=== PATIENT | male | born 1950 | race Caucasian/White ===

== ENCOUNTER 2017-04-26 08:22 | Inpatient (IN) | payer MEDICARE, OTHER ==
[2017-04-15 13:05] LABS: BASOPHILS 0.6 %; BASOPHILS ABSOLUTE 0.04 10/3/uL (0.0-0.16); EOSINOPHILS 2.2 %; EOSINOPHILS ABSOLUTE 0.15 10/3/uL (0.0-0.53); HEMATOCRIT 45.7 % (40.0-51.0); HEMOGLOBIN 15.4 g/dL (13.6-17.8); IMMATURE GRANULOCYTES 0.1 %; IMMATURE GRANULOCYTES ABSOLUTE 0.01 10/3/uL (0.0-0.11); LYMPHOCYTES 26.4 %; MANUAL DIFF NO %; MEAN CORPUS HGB CONC 33.7 g/dL (32.0-36.0); MEAN CORPUSCULAR HEMOGLOB 29.9 pg (26.0-34.0); MEAN CORPUSCULAR VOLUME 88.7 fL (80-100); MEAN PLATELET VOLUME 9.5 fL (9.2-13.0); MONOCYTES 8.9 %; MONOCYTES ABSOLUTE 0.61 10/3/uL (0.21-1.20); NEUTROPHILS 61.8 %; NEUTROPHILS ABSOLUTE 4.21 10/3/uL (2.02-8.40); PLATELET COUNT 212 10/3/uL (150-400); RED CELL COUNT 5.15 10/6/uL (4.7-6.1); WHITE BLOOD CELLS 6.8 10/3/uL (4.5-10.5)
[2017-04-15 13:12] LABS: INTERNATIONAL NORMAL RATI 1.1 UNITS (-); PROTIME (NOT ORD) 13.9 SEC (12.0-14.5)
[2017-04-15 13:40] LABS: % IRON SAT 30 % (20-50); A/G RATIO 1.2 (0.7-1.9); ALBUMIN 4.2 G/DL (3.5-5.0); ALKALINE PHOSPHATASE 77 U/L (45-117); BUN (BLOOD UREA NITROGEN) 20 MG/DL (6-23); CALCIUM, SERUM 9.5 MG/DL (8.5-10.4); CHLORIDE, SERUM 108 MMOL/L (96-112); CO2 (CARBON DIOXIDE) 30 MMOL/L (24-34); CREATININE 1.27 MG/DL (0.70-1.30); GFR AFRICAN AMERICAN 67 ML/MIN (>=60); GFR NON AFRICAN AMERICAN 58 ML/MIN (>=60); GLOBULIN 3.6 G/DL (2.5-4.1); GLUCOSE, SERUM 88 MG/DL (60-99); IRON BINDING CAPACITY 330 MCG/DL (250-450); IRON, SERUM 100 MCG/DL (35-150); POTASSIUM, SERUM 4.7 MMOL/L (3.5-5.3); SGOT(AST) 20 U/L (5-40); SGPT(ALT) 29 U/L (5-65); SODIUM, SERUM 144 MMOL/L (135-148); TOTAL BILIRUBIN 0.6 MG/DL (0-1.2); TOTAL PROTEIN 7.8 G/DL (6.0-8.5)
[2017-04-15 14:23] LABS: ASCORBIC ACID (UR NOT ORDER) 40 (NEG); BILIRUBIN, URINE NEGATIVE (NEG); KETONE, URINE NEGATIVE (NEG); LEUKOCYTE ESTERASE(NOT OR NEG (NEG); WBC (NOT ORDERED) (RFLEX) < 1 (0-5)
--- NOTE | ~2017-04-26 | HP ---
History And Physical [address] [place]. [address] NAME: TORIN WILLS : 48 STATUS : ADM IN [facility]#: [id number] AGE: 67 ADM/REG DATE : 04/26/17 MR#: [id number] REPORT SERV DATE: 04/28/17 DICTATED BY: CALIXTO BELL DATE: 04/27/17 REPORT STATUS : Draft TRANSCRIBED BY: MODL DATE: 04/27/17 DATE OF ADMISSION: 04/26/2017 REASON FOR CONSULTATION: Glucose management. HISTORY OF PRESENT ILLNESS: This is a pleasant 67-year-old white male who is status post coronary artery bypass grafting x6 that was performed on 04/26/[address] Garrett Heath. He reports that he had worsening episodes of shortness of breath with exercise and he underwent a heart catheterization on 03/08/2017 that showed diffuse coronary disease, and was subsequently referred to Dr. Heath for the above-described surgery. Hospitalist Service has been consulted postoperatively for blood glucose management as the patient does not have a history of diabetes, but did receive a large dose of Solu-Medrol intraoperatively of 500 mg. He was on an IV drip postoperatively, that has been discontinued as of this time. The patient currently only complains of some significant back pain as he has chronic back pain and takes chronic narcotics prior to this hospitalization. ALLERGIES: 1. STATED TO STATIN FOR FLU-LIKE SYMPTOMS. 2. HYDRALAZINE, APPARENT FACIAL SWELLING AND HEADACHE. 3. TEKTURNA, SEVERE HEADACHE AND FACIAL NUMBNESS. PAST MEDICAL HISTORY: Coronary artery disease; hypertension; hyperlipidemia; obstructive sleep apnea; obesity; NH in 2005 with prior cardiac stents in 2001, 2003; migraines; BPH; arthritis; and chronic back pain. SURGICAL HISTORY: As stated, cardiac stents in 2001, 2003; tonsillectomy; and an old traumatic removal of his right ring finger that has been reattached in 1960s. FAMILY HISTORY: Mother with breast cancer and hypertension, brother with hypertension, father with NH and hypertension. Both mother and father have . His ice cream server is Dr. Higgins, retirement village manager is Dr. Muhammad. He does not currently have a primary care, and pain management is Dr. Wells. SOCIAL HISTORY: Denies any alcohol and has remote history of tobacco, which he says quit in 1989. REVIEW OF SYSTEMS: Negative ten points except for pertinents mentioned in the above HPI. PHYSICAL EXAMINATION: VITAL SIGNS: He has a temperature of 97.7, pulse of 73, blood pressure 133/67, and respiratory rate of 22. He is currently saturating 93% on 3 L nasal cannula. GENERAL: He is alert and oriented x3. No focal deficits. Cooperative and awake, in no acute distress for this exam, although does complain of significant mid to upper back pain. LUNGS: Clear, but mildly diminished at the bases and has somewhat shallow breathing pattern History And Physical [address] [address] NAME: TORIN WILLS : 48 STATUS : ADM IN [facility]#: [id number] AGE: 67 ADM/REG DATE : 04/26/17 MR#: [id number] REPORT SERV DATE: 04/28/17 DICTATED BY: CALIXTO BELL DATE: 04/27/17 REPORT STATUS : Draft TRANSCRIBED BY: EDGARDO DATE: 04/27/17 currently. CARDIOVASCULAR: No murmurs, rubs, or gallops appreciated. Regular rate and rhythm. ABDOMEN: Bowel sounds are hypoactive. His belly is obese. Unable to assess organs because of the obesity. EXTREMITIES: He does have +1 bilateral lower extremity edema with normal distal pulses. HEENT: PERRLA is noted. Sclerae are clear. SKIN: Warm and dry. A midline sternotomy incision. LABORATORY DATA: Lab work today indicated a sodium of 141, potassium 4.7, a BUN of 31, creatinine 1.60. White blood cells 19.6, hemoglobin 12.8, hematocrit 38.7. Last six blood sugars are as follows: 122, 165, 138, 126, 114, and 120. ASSESSMENT: 1. Hyperglycemia and postoperative coronary artery bypass grafting x6, history of coronary disease. 2. BPH. 3. Chronic back pain. 4. Hypertension. 5. Obesity. 6. Chronic kidney disease, stage 3. 7. T-max of 101.4 in the past 24 hours and leukocytosis, somewhat expected postoperatively, likely atelectasis. 8. Obstructive sleep apnea, on current CPAP therapy nightly. PLAN: We will plan on instituting a level 1 sliding scale a.c. and at bedtime at this time and we will give 1 dose of Levemir. This patient has no history of diabetes. I do not anticipate any need beyond this hospitalization, but given the fact that he received high dose Solu-Medrol, we will need to treat currently. He is complaining of some mild urinary symptoms of inability to empty his bladder fully, and we will resume his doxazosin and also add MiraLAX given his chronic pain and chronic narcotics. We will follow lab work to include a CBC and BMP in the a.m. Monitor his blood pressures closely as his ARB and Lasix and amlodipine are currently on hold. His blood sugars are very stable at this time. He needs aggressive pulmonary toilet and use of his CPAP nightly. Questions were answered at the bedside extensively with the patient. He is in agreement with this plan going forward. I appreciate the opportunity to participate in the care of this patient. We will follow along with you. RYLAND/EDGARDO Calixto Bell NP / [id number] CC: History And Physical [address] [address] NAME: TORIN WILLS : [birth year] STATUS : ADM IN [facility]#: [id number] AGE: 67 ADM/REG DATE : 04/26/17 MR#: [id number] REPORT SERV DATE: 04/28/17 DICTATED BY: CALIXTO BELL DATE: 04/27/17 REPORT STATUS : Draft TRANSCRIBED BY: EDGARDO DATE: 04/27/17 Garrett Heath M.D.
--- NOTE | ~2017-04-26 | DS ---
Discharge Summary [facility] [address] [place]. [address] NAME: TORIN WILLS : 48 STATUS : DIS IN PAT#: [id number] AGE: 67 ADM/REG DATE : 04/26/17 MR#: [id number] REPORT SERV DATE: 05/14/17 DICTATED BY: FLORENCIO HEATH DATE: 05/13/17 REPORT STATUS : Draft TRANSCRIBED BY: EDGARDO DATE: 05/13/17 Data Collection from hospitalization DISCHARGE DIAGNOSES: 1. Coronary artery disease, status post coronary artery bypass. 2. Obstructive sleep apnea. 3. Hypertension. 4. Hyperlipidemia. 5. Obesity. 6. History of myocardial infarction. 7. Migraines. 8. Benign prostatic hypertrophy. 9. Arthritis. 10.Chronic back pain. 11.Former smoker. CONSULTATIONS: 1. Teja Alanis M.D. 2. Calixto Jackson NP. PROCEDURES PERFORMED: Coronary artery bypass grafting x6 with left internal mammary artery to the left anterior descending artery, reverse saphenous vein graft placed to the first diagonal, reverse saphenous vein graft sequenced to the second obtuse marginal, reverse saphenous vein graft placed sequenced to the posterolateral branch vessel and posterior descending artery; endoscopic vein harvest of saphenous vein from the right leg; transesophageal echocardiography on 04/26/2017. MEDICATIONS: Aspirin 81 mg at bedtime, Lipitor 40 mg at bedtime, vitamin B one tablet as instructed, vitamin D3 2000 units daily, Plavix 75 mg daily, CoQ10 200 mg daily, Cardura 8 mg twice a day, Siria 180 mg daily, B1 flaxseed 2000 mg daily, Lasix 40 mg twice a day, Neurontin 1200 mg at bedtime, Arcata 10/325 one tablet three times a day, Cozaar 100 mg daily, Lutein 20 mg daily, Mag-Ox 400 mg daily, Mobic 7.5 mg twice a day as needed, Ritalin 20 mg three times a day, Lopressor 12.5 mg twice a day, niacin 1000 mg at bedtime, Klor-Con 20 mEq three times a day, vitamin E 400 units daily, probiotic one capsule daily, and turmeric one capsule daily. CONDITION AT DISCHARGE: Stable. DISPOSITION: The patient was discharged home on a low-sodium, low-cholesterol, cardiac diet with activities as instructed. He would follow up with Dr. Herman Higgins on 06/01/2017 and with Gokul Jones on 06/16/2017. HOSPITAL COURSE: This is a 67-year-old man who is obese and hypertensive. He has a history of smoking, but is not a current smoker. He has a previous history of stenting of the coronaries and a previous myocardial infarction in 2005. He recently had episodes of increasing dyspnea and had undergone repeat cardiac catheterization, which demonstrated significant progression of his disease and diffuse three coronary artery disease. It was felt that he would need to undergo coronary artery bypass grafting. He was admitted to the [address] [address] NAME: TORIN WILLS : 48 STATUS : DIS IN PAT#: [id number] AGE: 67 ADM/REG DATE : 04/26/17 MR#: [id number] REPORT SERV DATE: 05/14/17 DICTATED BY: FLORENCIO HEATH DATE: 05/13/17 REPORT STATUS : Draft TRANSCRIBED BY: EDGARDO DATE: 05/13/17 [facility] for further evaluation and treatment. Upon admission, he was taken to the operating room where he underwent the above-mentioned procedure. He tolerated this well, and there were no complications. Postoperatively, he was seen by Calixto Jackson. She had been asked to see the patient regarding glucose management. The patient does not have a history of diabetes, but did receive a large dose of Solu-Medrol intraoperatively. He was on an IV drip postoperatively, but this had been discontinued at this time. His only complaint was of some significant back pain as he does have chronic back pain and takes chronic narcotics. White blood cell count was 19.6. The patient uses CPAP nightly for obstructive sleep apnea. Level 1 sliding scale insulin was going to began. He did receive a dose of Levemir. The patient has no history of diabetes and he did not anticipate there being any need beyond this hospitalization. Given the fact he received high-dose Solu-Medrol, we would treat this currently. He was complaining of some mild urinary symptoms of inability to completely empty his bladder. Doxazosin was resumed. MiraLAX was added. Blood sugars were very stable at this time. He would need aggressive pulmonary toilet and he was to use his CPAP nightly. The patient was seen by Dr. Teja Alanis. He was still sedated and intubated. Preoperative ejection fraction had been 60%. Weaning efforts continued. On postop day #1, he had decreased breath sounds. He was in a normal sinus rhythm. He still complained of some back pain. Chest x-ray showed some atelectasis. Creatinine level was 1.33. Chest tubes were removed. Blood pressure was well controlled. He was receiving oral amiodarone and metoprolol. Hydrocodone was going to be resumed as well as his gabapentin. On 04/28/2017, he still complained of back pain. Chest x-ray showed small effusions. He has 1+ pedal edema. Pacing wires were removed. Oral Lasix and KCl were going to be given. His hydrocodone had been increased. He was resting comfortably. He was encouraged to ambulate. On 04/29/2017, pain was under much better control. He did have a bowel movement. He was ambulating in the halls. Lasix was increased. Discharge planning was performed. He was encouraged to use pulmonary toilet. Acute kidney injury had resolved. Lasix was increased. O2 was being weaned. On 05/01/2017, he had no new complaints. He was alert and cooperative. Discharge instructions were given. He was in a sinus rhythm and had no further atrial fibrillation. Due to his improved and stable condition, he was discharged home with the above-stated instructions. Information collected by: Milagro Pritchard I submit the above information as my discharge summary. TG/MODL Florencio Heath M.D. / [id number] CC: Alvino Gallegos M.D.
--- NOTE | ~2017-04-26 | OP ---
Record Of Operation [address] [place]. [address] NAME: TORIN WILLS : 48 STATUS : ADM IN PAT#: [id number] AGE: 67 ADM/REG DATE : 04/26/17 MR#: [id number] REPORT SERV DATE: 04/27/17 DICTATED BY: FLORENCIO HEATH DATE: 04/26/17 REPORT STATUS : Draft TRANSCRIBED BY: MODL DATE: 04/26/17 DATE OF PROCEDURE: 04/26/2017 PREOPERATIVE DIAGNOSES: 1. Coronary artery disease with dyspnea. 2. Hypertension. 3. Hyperlipidemia. 4. Obstructive sleep apnea. 5. Obesity. POSTOPERATIVE DIAGNOSES: 1. Coronary artery disease with dyspnea. 2. Hypertension. 3. Hyperlipidemia. 4. Obstructive sleep apnea. 5. Obesity. PROCEDURE PERFORMED: 1. Coronary artery bypass grafting x6, left internal mammary artery placed to left anterior descending, reverse saphenous vein graft placed to the first diagonal, reverse saphenous vein graft sequenced to the second obtuse marginal, reverse saphenous vein graft placed sequenced to the posterolateral branch vessel and the posterior descending artery. 2. Endoscopic vein harvest, saphenous vein from right leg. 3. Transesophageal echocardiography. SURGEON: Florencio Heath M.D. ASSISTANTS: Jaguar Avitia and Lm Clarke. ANESTHESIA: General with Dr. Art. CUSTOMER LEADER: Herman Higgins M.D. PRIMARY CARE PHYSICIAN: Not known. INDICATIONS: This is an obese, hypertensive, non-diabetic male, who has a history of smoking, but is not a current smoker. He has a history of previous stenting of the coronaries and previous myocardial infarction in 2005. He recently had episodes of increasing dyspnea and underwent a repeat cardiac catheterization, which demonstrated significant progression of his disease and diffuse three coronary artery disease. We were asked to see the patient for possible coronary artery bypass grafting secondary to severity of disease and three-vessel disease. His ventricular function was preserved with an Record Of Operation [address] [place]. [address] NAME: TORIN WILLS : 49 STATUS : ADM IN PAT#: [id number] AGE: 67 ADM/REG DATE : 04/26/17 MR#: [id number] REPORT SERV DATE: 04/27/17 DICTATED BY: FLORENCIO HEATH DATE: 04/26/17 REPORT STATUS : Draft TRANSCRIBED BY: MODMathew DATE: 04/26/17 ejection fraction of 50%. We discussed the operation with the patient and his , and after lengthy discussion of operations, its indication and risks, they wished to proceed. Predicted risk of mortality from STS studies indicate risk of less than 5% mortality and less than 15% morbidity and mortality. FINDINGS AT OPERATION: 1. Cross-clamp time of 94 minutes. Total pump time of 111 minutes. 2. All the coronaries were diffusely diseased. 3. The LAD was 1.75 mm heavily diseased and diffusely diseased vessel. Made a long arteriotomy through the more distal lesion that was stenotic on cath. A 2.5 mm CLIFFORD was anastomosed to it with good runoff. 4. The first diagonal was 1.75 mm moderately diseased. A 4 mm RSVG anastomosed to it with good runoff. 5. The second obtuse marginal was 1.75 mm moderately diseased. A 3.5 mm RSVG was anastomosed to it in a yemf-vy-yeen fashion with good runoff. 6. The third obtuse marginal was 1.5 mm moderately diseased. The end of the same 3.5 mm RSVG was anastomosed to it with good runoff. 7. The posterior descending artery was 1.5 mm moderately diseased. We chose to bypass this vessel at its most distal location secondary to sequential lesions in the PDA proximally. The end of the 3.5 mm RSVG was anastomosed to it with fair runoff. 8. The posterolateral branch vessel was 1.5 mm heavily diseased. The same 3 and 0.5 mm RSVG was anastomosed it and more proximally and a lkrs-oo-hjys fashion with fair runoff. 9. The vein quality was good and all grafts had good Doppler signal at the end of the case. 10.JOAN demonstrated good ventricular function with no significant valvulopathy. PATHOLOGIC SPECIMENS: None. DESCRIPTION OF PROCEDURE: The patient was brought to the operating suite where general anesthesia was induced, airway secured with an endotracheal tube. Lines secured by Anesthesia. Loredo catheter was placed. The patient's chest, abdomen, groin, and legs were prepped with Hibiclens and ChloraPrep and draped with Ioban sterile sheets. JOAN probe was placed by Dr. Art and examination carried out as discussed above. The saphenous vein was harvested from the right leg using endoscopic technique. Briefly, the vein was cut directly down upon through a 2 cm incision placed at the medial aspect of the right knee. Then, using VasoView trocars, the vessel was dissected from the surrounding subcutaneous tissue and fat. The side branches were identified, ligated, and divided with cautery. Once adequate length of vein had been dissected, a counter incision made up in the groin and in the lower leg where the vein was ligated and divided and brought through the knee incision. The vein quality was good. The leg wounds were made hemostatic and closed in layers with absorbable suture, and skin closed with subcuticular fashion. Next, a midline sternal incision made and the sternum opened with a saw. The left hemithorax was elevated and the endothoracic fascia was incised. Side branches of the ARI were clipped and divided. Once the ARI was completely dissected, the patient was Record Of Operation [id number] [facility] [place]. [address] NAME: TORIN WILLS : 48 STATUS : ADM IN PAT#: [id number] AGE: 67 ADM/REG DATE : 04/26/17 MR#: [id number] REPORT SERV DATE: 04/27/17 DICTATED BY: FLORENCIO HEATH DATE: 04/26/17 REPORT STATUS : Draft TRANSCRIBED BY: EDGARDO DATE: 04/26/17 anticoagulated with heparin and a chest tube placed in the left pleural cavity. The ARI was clipped and divided distally. There was good flow through the ARI and its pedicle was infiltrated with papaverine. Next, the Eliazar retractor was placed in the pericardium over the innominate vein to the diaphragm, where it was T'd and tacked to the side of the chest wall. Cannulation pursestring sutures were placed and cannulation was carried out in routine manner. A retrograde cardioplegia cannula was placed in the coronary sinus. When all was in readiness, the patient was placed on cardiopulmonary bypass. The distal targets were marked out on the heart as described in the findings. Then, a heart support was placed. The aorta was crossclamped and an initial dose of cold blood cardioplegia solution was given in a combination of antegrade and retrograde fashion, and then in a retrograde manner following proximal anastomoses. Following the first dose of cardioplegia, the heart was positioned for the first diagonal graft. Arteriotomy was made and the vein graft trimmed and anastomosed to it with 7-0 Prolene. The vein graft was measured to the left side of the ascending aorta where it was divided. We then positioned the heart for the PDA graft. Arteriotomy was made in the distal PDA to terminal bifurcation. The vein graft was trimmed and anastomosed to it in an end-to-side fashion with running suture of 7-0 Prolene. This vein graft was then measured back to the bifurcation of the PDA from the distal RCA. A small arteriotomy was made in the posterior lateral branches that arose from this bifurcation. The vein graft was measured and opened accordingly. It was anastomosed to the posterolateral branch vessel in a side-to side fashion with running suture of 7-0 Prolene. The vein graft was then measured to the ascending aorta where it was divided. Next, the proximal ends of the two vein grafts were anastomosed to 4.5 mm punch aortotomies with 6-0 Prolene. Another dose of cardioplegia was given and the heart was positioned for the second obtuse marginal graft. Arteriotomy was made and the vein graft brought up to the field and planned for sequential grafting. The vein was opened proximally and a [id number] saphenous coronary anastomosis was constructed with 7-0 Prolene. Then, the third obtuse marginal vessel was opened and the end of the vein graft was trimmed and anastomosed it in an end-to-side fashion with a running suture of 7-0 Prolene. This sequential vein graft was then measured back to the left side of the ascending aorta where it was divided and anastomosed to a 4.5 mm punch aortotomy with 6-0 Prolene. Another dose of cardioplegia was given and we positioned the heart for the LAD graft. A long arteriotomy was made through what was thought to be the most distal stenotic lesion of the LAD prior to going into the apex. The ARI was opened at the long arteriotomy and uses a patch angioplasty to the LAD with a running suture of 8-0 Prolene. The endothoracic fascia around the anastomosis was tacked to the epicardium. Doppler demonstrated excellent flow through this graft. The patient was then placed in Trendelenburg and a final dose of warm blood cardioplegia given in a retrograde fashion. Ventricular and atrial pacing wires were placed. Following the last dose cardioplegia and deairing of the aorta, the aortic cross clamp was removed. The distal and proximal anastomoses were inspected and made hemostatic. Doppler demonstrated good flow through the grafts. The heart was cardioverted using 10 joules of Record Of Operation [address] [facility] [place]. [address] NAME: TORIN WILLS : 48 STATUS : ADM IN PAT#: [id number] AGE: 67 ADM/REG DATE : 04/26/17 MR#: [id number] REPORT SERV DATE: 04/27/17 DICTATED BY: FLORENCIO HEATH DATE: 04/26/17 REPORT STATUS : Draft TRANSCRIBED BY: EDGARDO DATE: 04/26/17 energy in the internal paddles. He was then paced in an atrial fashion at a rate of 80. When the heart demonstrated good contractility, ventilations were begun and the heart was allowed to fill and eject. Deairing was monitored with JOAN. When deairing was completed, the patient was taken out of Trendelenburg, the ascending aortic vent removed, and each pursestring sutures tied and reinforced. The patient was then weaned from cardiopulmonary bypass with minimal inotropic support. The venous cannula was removed and each pursestring sutures were tied. JOAN examination demonstrated good ventricular function with no significant valvulopathy. Protamine was administered by Anesthesia. Following a period of hemodynamic stability, the aortic cannula was removed and each pursestring sutures tied and reinforced. The patient continued to do well and chest irrigated copiously with saline. Meticulous hemostasis was obtained. Hemasorb was placed along the cut edge of the sternum. Once hemostasis was assured, the pericardium was draped over the anterior surface of the heart and tacked into position. Doppler demonstrated good flow through the grafts following protamine administration. Then, chest tubes were placed and sternum reapproximated with 8 sternal wires. The clavipectoral fascia and linea alba were closed with #1 Stratafix. The subcutaneous tissue was closed with Stratafix and skin closed in a subcuticular fashion. The patient tolerated the procedure well without any complications. Sponge and needle counts were correct. DISPOSITION: The patient was left intubated, sedated, and transported to the intensive care unit in stable condition. JENA/EDGARDO Florencio Heath M.D. / [id number] CC: Alvino Gallegos M.D.
[~2017-04-26 08:22] MED LIST: ALLEGRA180 PO; APRES50 PO; ASAB PO; BL FLAX SEED1000 MG PO; CARDURA8 MG PO; COQ-10200 MG PO; COREG25 PO; COZAAR100 MG PO; IMDUR30 PO; KLOR-CON M2020 MEQ PO; L40 PO; LUTEIN20 MG PO; MAGOX4 PO; MOBIC7.5 PO; MONODOX100 MG PO; NEUR600 PO; NIACIN TR1000 MG PO; NORCO1 TAB PO; NORV10 PO; NORV5 PO; PETADOLEX PO; PLAVIX PO; PROBIOTIC PO; RITALIN20 PO; SPIRO25 PO; TUMERIC PO; VITAMIN B PO; VITAMIN D31000 UNIT PO; VITE PO
[2017-04-26 09:35] LABS: TEG - ANGLE 68.6 DEG (53-72); TEG - MAXIMUM AMPLITUDE 67.5 MM (50-70)
[2017-04-26 09:36] LABS: MAX AMP (ADP) 62.2 MM (35-68); TEG - COAGULATION INDEX 1.2 (-3 TO 3); TEG PLAVIX/EFFIENT/TICLID(ADP) 9.8 % INHIB (< 40)
[2017-04-26 19:56] LABS: BASOPHILS 0.1 %; BASOPHILS ABSOLUTE 0.02 10/3/uL (0.0-0.16); EOSINOPHILS 0.2 %; EOSINOPHILS ABSOLUTE 0.04 10/3/uL (0.0-0.53); HEMOGLOBIN 13.1 g/dL (13.6-17.8); IMMATURE GRANULOCYTES 0.5 %; IMMATURE GRANULOCYTES ABSOLUTE 0.09 10/3/uL (0.0-0.11); LYMPHOCYTES 8.4 %; LYMPHOCYTES ABSOLUTE 1.41 10/3/uL (0.67-4.30); MEAN CORPUS HGB CONC 33.7 g/dL (32.0-36.0); MEAN CORPUSCULAR HEMOGLOB 29.7 pg (26.0-34.0); MEAN CORPUSCULAR VOLUME 88.2 fL (80-100); MEAN PLATELET VOLUME 9.6 fL (9.2-13.0); MONOCYTES 1.8 %; NEUTROPHILS ABSOLUTE 14.94 10/3/uL (2.02-8.40); PLATELET COUNT 163 10/3/uL (150-400); RBC DISTRIBUTION WIDTH 13.1 % (12.0-16.0); RED CELL COUNT 4.41 10/6/uL (4.7-6.1)
[2017-04-26 19:57] LABS: WHITE BLOOD CELLS 16.8 10/3/uL (4.5-10.5)
[2017-04-26 19:58] LABS: HEMATOCRIT 38.9 % (40.0-51.0); MANUAL DIFF NO %
[2017-04-26 20:04] LABS: INTERNATIONAL NORMAL RATI 1.4 UNITS (-); PARTIAL THROMBO TIME 30.3 SEC (22.5-37.2); PROTIME (NOT ORD) 16.7 SEC (12.0-14.5)
[2017-04-26 20:18] LABS: BUN (BLOOD UREA NITROGEN) 21 MG/DL (6-23); CHLORIDE, SERUM 115 MMOL/L (96-112); CO2 (CARBON DIOXIDE) 26 MMOL/L (24-34); CREATININE 1.36 MG/DL (0.70-1.30); GFR AFRICAN AMERICAN 62 ML/MIN (>=60); GFR NON AFRICAN AMERICAN 53 ML/MIN (>=60); PHOSPHORUS, SERUM 1.3 MG/DL (2.5-4.5); SGOT(AST) 30 U/L (5-40); SGPT(ALT) 21 U/L (5-65); SODIUM, SERUM 146 MMOL/L (135-148); TOTAL BILIRUBIN 0.4 MG/DL (0-1.2)
[2017-04-26 20:19] LABS: A/G RATIO 1.1 (0.7-1.9); ALBUMIN 3.2 G/DL (3.5-5.0); ALKALINE PHOSPHATASE 49 U/L (45-117); CALCIUM, SERUM 8.5 MG/DL (8.5-10.4); GLOBULIN 2.8 G/DL (2.5-4.1); GLUCOSE, SERUM 126 MG/DL (60-99); POTASSIUM, SERUM 3.6 MMOL/L (3.5-5.3)
[2017-04-26 23:36] LABS: BE (BASE EXCESS) -3.6 MEQ/L (0 +/- 2.5); CARBOXYHEMOGLOBIN 0.1 % (0-3); DEVICE HFNC; HCO3 (ACTUAL BICARBONATE) 21.9 MEQ/L (23-27); HEMOBLOGIN CONTENT 14.6 G/DL (14-18); INSTRUMENT SERIAL # 11843; METHEMOGLOBIN 0.5 % (0-3); O2 CONTENT 19.4 VOL% (18-24); OPERATOR ID 16469; PCO2 (CO2 TENSION) 41 MMHG (35-45); PO2 (O2 TENSION) 82 MMHG (79-93); SAMPLE Arterial; pH 7.34 (7.37-7.43)
[2017-04-27 00:03] LABS: HEMATOCRIT 41.2 % (40.0-51.0); HEMOGLOBIN 14.2 g/dL (13.6-17.8); MANUAL DIFF YES %; MEAN CORPUS HGB CONC 34.5 g/dL (32.0-36.0); MEAN CORPUSCULAR HEMOGLOB 30.3 pg (26.0-34.0); MEAN PLATELET VOLUME 9.6 fL (9.2-13.0); PLATELET COUNT 168 10/3/uL (150-400); RED CELL COUNT 4.68 10/6/uL (4.7-6.1); WHITE BLOOD CELLS 14.7 10/3/uL (4.5-10.5)
[2017-04-27 00:15] LABS: BUN (BLOOD UREA NITROGEN) 23 MG/DL (6-23); CHLORIDE, SERUM 118 MMOL/L (96-112); CREATININE 1.33 MG/DL (0.70-1.30); GFR AFRICAN AMERICAN 63 ML/MIN (>=60); GFR NON AFRICAN AMERICAN 55 ML/MIN (>=60); GLUCOSE, SERUM 105 MG/DL (60-99); POTASSIUM, SERUM 4.3 MMOL/L (3.5-5.3); SODIUM, SERUM 148 MMOL/L (135-148)
[2017-04-27 00:16] LABS: CALCIUM, SERUM 8.4 MG/DL (8.5-10.4); CO2 (CARBON DIOXIDE) 25 MMOL/L (24-34)
[2017-04-27 00:25] LABS: BAND NEUTROPHILS 15 %; LYMPHOCYTES 6 %; LYMPHOCYTES ABSOLUTE (CALC) 0.88 10/3/uL (0.67-4.30); MONOCYTES 3 %; MONOCYTES ABSOLUTE (CALC) 0.44 10/3/uL (0.21-1.20); NEUTROPHILS ABSOLUTE (CALC) 13.38 10/3/uL (2.02-8.40); PLATELET ESTIMATE ADQ (ADEQUATE); RBC MORPHOLOGY NORM (NORMAL); SEGMENTED NEUTROPHIL (0) 76 %; TOTAL NUCLEATED CELLS 100
[2017-04-27 03:46] LABS: BASOPHILS 0 %; EOSINOPHILS 0 %; HEMATOCRIT 40.4 % (40.0-51.0); HEMOGLOBIN 13.5 g/dL (13.6-17.8); IMMATURE GRANULOCYTES 0.4 %; IMMATURE GRANULOCYTES ABSOLUTE 0.06 10/3/uL (0.0-0.11); LYMPHOCYTES ABSOLUTE 0.96 10/3/uL (0.67-4.30); MEAN CORPUS HGB CONC 33.4 g/dL (32.0-36.0); MEAN CORPUSCULAR HEMOGLOB 29.6 pg (26.0-34.0); MEAN CORPUSCULAR VOLUME 88.6 fL (80-100); MEAN PLATELET VOLUME 9.9 fL (9.2-13.0); MONOCYTES ABSOLUTE 0.55 10/3/uL (0.21-1.20); NEUTROPHILS 88.6 %; NEUTROPHILS ABSOLUTE 12.24 10/3/uL (2.02-8.40); PLATELET COUNT 176 10/3/uL (150-400); RBC DISTRIBUTION WIDTH 13.1 % (12.0-16.0); RED CELL COUNT 4.56 10/6/uL (4.7-6.1); WHITE BLOOD CELLS 13.8 10/3/uL (4.5-10.5)
[2017-04-27 03:47] LABS: MANUAL DIFF NO %
[2017-04-27 04:03] LABS: CALCIUM, SERUM 8.4 MG/DL (8.5-10.4); CHLORIDE, SERUM 114 MMOL/L (96-112); CO2 (CARBON DIOXIDE) 24 MMOL/L (24-34); CREATININE 1.33 MG/DL (0.70-1.30); GFR AFRICAN AMERICAN 63 ML/MIN (>=60); GFR NON AFRICAN AMERICAN 55 ML/MIN (>=60); GLUCOSE, SERUM 122 MG/DL (60-99); POTASSIUM, SERUM 4.3 MMOL/L (3.5-5.3); SODIUM, SERUM 145 MMOL/L (135-148)
[2017-04-27 04:07] LABS: BUN (BLOOD UREA NITROGEN) 26 MG/DL (6-23)
[2017-04-27 14:31] LABS: BASOPHILS 0.1 %; BASOPHILS ABSOLUTE 0.01 10/3/uL (0.0-0.16); EOSINOPHILS 0 %; HEMATOCRIT 38.3 % (40.0-51.0); HEMOGLOBIN 12.8 g/dL (13.6-17.8); IMMATURE GRANULOCYTES 0.3 %; IMMATURE GRANULOCYTES ABSOLUTE 0.06 10/3/uL (0.0-0.11); LYMPHOCYTES 6.7 %; LYMPHOCYTES ABSOLUTE 1.32 10/3/uL (0.67-4.30); MEAN CORPUS HGB CONC 33.4 g/dL (32.0-36.0); MEAN CORPUSCULAR HEMOGLOB 29.8 pg (26.0-34.0); MEAN CORPUSCULAR VOLUME 89.1 fL (80-100); MONOCYTES ABSOLUTE 2.74 10/3/uL (0.21-1.20); NEUTROPHILS 78.9 %; NEUTROPHILS ABSOLUTE 15.51 10/3/uL (2.02-8.40); PLATELET COUNT 156 10/3/uL (150-400); RBC DISTRIBUTION WIDTH 13.8 % (12.0-16.0)
[2017-04-27 14:36] LABS: MANUAL DIFF NO %; WHITE BLOOD CELLS 19.6 10/3/uL (4.5-10.5)
[2017-04-27 14:42] LABS: CALCIUM, SERUM 8.4 MG/DL (8.5-10.4); CHLORIDE, SERUM 111 MMOL/L (96-112); CO2 (CARBON DIOXIDE) 24 MMOL/L (24-34); GFR AFRICAN AMERICAN 51 ML/MIN (>=60); GFR NON AFRICAN AMERICAN 44 ML/MIN (>=60); GLUCOSE, SERUM 115 MG/DL (60-99); POTASSIUM, SERUM 4.5 MMOL/L (3.5-5.3); SODIUM, SERUM 141 MMOL/L (135-148)
[2017-04-27 14:43] LABS: BUN (BLOOD UREA NITROGEN) 31 MG/DL (6-23)
[2017-04-27 19:12] LABS: HEMATOCRIT 38.7 % (40.0-51.0); HEMOGLOBIN 12.8 g/dL (13.6-17.8)
[2017-04-28 04:52] LABS: BASOPHILS 0.1 %; BASOPHILS ABSOLUTE 0.01 10/3/uL (0.0-0.16); EOSINOPHILS 0 %; HEMOGLOBIN 12.6 g/dL (13.6-17.8); IMMATURE GRANULOCYTES 0.3 %; IMMATURE GRANULOCYTES ABSOLUTE 0.06 10/3/uL (0.0-0.11); LYMPHOCYTES 8.9 %; LYMPHOCYTES ABSOLUTE 1.55 10/3/uL (0.67-4.30); MEAN CORPUS HGB CONC 33.2 g/dL (32.0-36.0); MEAN CORPUSCULAR HEMOGLOB 29.7 pg (26.0-34.0); MEAN CORPUSCULAR VOLUME 89.6 fL (80-100); MEAN PLATELET VOLUME 9.8 fL (9.2-13.0); MONOCYTES 14.1 %; MONOCYTES ABSOLUTE 2.44 10/3/uL (0.21-1.20); NEUTROPHILS 76.6 %; NEUTROPHILS ABSOLUTE 13.26 10/3/uL (2.02-8.40); PLATELET COUNT 157 10/3/uL (150-400); RBC DISTRIBUTION WIDTH 13.6 % (12.0-16.0); RED CELL COUNT 4.24 10/6/uL (4.7-6.1); WHITE BLOOD CELLS 17.3 10/3/uL (4.5-10.5)
[2017-04-28 04:56] LABS: MANUAL DIFF NO %
[2017-04-28 05:00] LABS: INTERNATIONAL NORMAL RATI 1.4 UNITS (-); PROTIME (NOT ORD) 16.7 SEC (12.0-14.5)
[2017-04-28 05:05] LABS: BUN (BLOOD UREA NITROGEN) 33 MG/DL (6-23); CALCIUM, SERUM 8.2 MG/DL (8.5-10.4); CHLORIDE, SERUM 106 MMOL/L (96-112); CO2 (CARBON DIOXIDE) 25 MMOL/L (24-34); CREATININE 1.41 MG/DL (0.70-1.30); GFR AFRICAN AMERICAN 59 ML/MIN (>=60); GFR NON AFRICAN AMERICAN 51 ML/MIN (>=60); GLUCOSE, SERUM 132 MG/DL (60-99); SODIUM, SERUM 137 MMOL/L (135-148)
[2017-04-29 04:30] LABS: BASOPHILS 0.1 %; BASOPHILS ABSOLUTE 0.01 10/3/uL (0.0-0.16); EOSINOPHILS 0.1 %; EOSINOPHILS ABSOLUTE 0.01 10/3/uL (0.0-0.53); HEMATOCRIT 38.4 % (40.0-51.0); HEMOGLOBIN 12.8 g/dL (13.6-17.8); IMMATURE GRANULOCYTES 0.2 %; IMMATURE GRANULOCYTES ABSOLUTE 0.03 10/3/uL (0.0-0.11); LYMPHOCYTES ABSOLUTE 1.78 10/3/uL (0.67-4.30); MEAN CORPUS HGB CONC 33.3 g/dL (32.0-36.0); MEAN CORPUSCULAR HEMOGLOB 29.8 pg (26.0-34.0); MEAN CORPUSCULAR VOLUME 89.5 fL (80-100); MONOCYTES 18.4 %; MONOCYTES ABSOLUTE 2.52 10/3/uL (0.21-1.20); NEUTROPHILS 68.2 %; NEUTROPHILS ABSOLUTE 9.35 10/3/uL (2.02-8.40); PLATELET COUNT 144 10/3/uL (150-400); RBC DISTRIBUTION WIDTH 13.7 % (12.0-16.0); RED CELL COUNT 4.29 10/6/uL (4.7-6.1); WHITE BLOOD CELLS 13.7 10/3/uL (4.5-10.5)
[2017-04-29 04:34] LABS: MANUAL DIFF NO %
[2017-04-29 04:42] LABS: BUN (BLOOD UREA NITROGEN) 32 MG/DL (6-23); CALCIUM, SERUM 8.3 MG/DL (8.5-10.4); CHLORIDE, SERUM 106 MMOL/L (96-112); CO2 (CARBON DIOXIDE) 28 MMOL/L (24-34); CREATININE 1.12 MG/DL (0.70-1.30); GFR AFRICAN AMERICAN 78 ML/MIN (>=60); GFR NON AFRICAN AMERICAN 67 ML/MIN (>=60); GLUCOSE, SERUM 116 MG/DL (60-99); POTASSIUM, SERUM 4.5 MMOL/L (3.5-5.3); SODIUM, SERUM 139 MMOL/L (135-148)
[2017-04-30 03:38] LABS: BASOPHILS 0.2 %; BASOPHILS ABSOLUTE 0.02 10/3/uL (0.0-0.16); EOSINOPHILS 0.3 %; EOSINOPHILS ABSOLUTE 0.03 10/3/uL (0.0-0.53); HEMATOCRIT 37.5 % (40.0-51.0); HEMOGLOBIN 12.7 g/dL (13.6-17.8); IMMATURE GRANULOCYTES 0.3 %; IMMATURE GRANULOCYTES ABSOLUTE 0.03 10/3/uL (0.0-0.11); LYMPHOCYTES 17.6 %; LYMPHOCYTES ABSOLUTE 1.93 10/3/uL (0.67-4.30); MEAN CORPUS HGB CONC 33.9 g/dL (32.0-36.0); MEAN CORPUSCULAR HEMOGLOB 29.8 pg (26.0-34.0); MEAN PLATELET VOLUME 10.2 fL (9.2-13.0); MONOCYTES 17.6 %; MONOCYTES ABSOLUTE 1.92 10/3/uL (0.21-1.20); NEUTROPHILS ABSOLUTE 7.01 10/3/uL (2.02-8.40); PLATELET COUNT 162 10/3/uL (150-400); RBC DISTRIBUTION WIDTH 13.7 % (12.0-16.0); RED CELL COUNT 4.26 10/6/uL (4.7-6.1); WHITE BLOOD CELLS 10.9 10/3/uL (4.5-10.5)
[2017-04-30 03:41] LABS: MANUAL DIFF NO %
[2017-04-30 03:59] LABS: BUN (BLOOD UREA NITROGEN) 31 MG/DL (6-23); CALCIUM, SERUM 8.3 MG/DL (8.5-10.4); CHLORIDE, SERUM 104 MMOL/L (96-112); CO2 (CARBON DIOXIDE) 26 MMOL/L (24-34); CREATININE 1.26 MG/DL (0.70-1.30); GFR AFRICAN AMERICAN 67 ML/MIN (>=60); GFR NON AFRICAN AMERICAN 58 ML/MIN (>=60); GLUCOSE, SERUM 124 MG/DL (60-99); POTASSIUM, SERUM 4.2 MMOL/L (3.5-5.3); SODIUM, SERUM 137 MMOL/L (135-148)
[2017-05-01 04:24] LABS: BASOPHILS 0.1 %; BASOPHILS ABSOLUTE 0.01 10/3/uL (0.0-0.16); EOSINOPHILS 1.8 %; EOSINOPHILS ABSOLUTE 0.17 10/3/uL (0.0-0.53); HEMATOCRIT 37.3 % (40.0-51.0); HEMOGLOBIN 12.5 g/dL (13.6-17.8); IMMATURE GRANULOCYTES 0.3 %; IMMATURE GRANULOCYTES ABSOLUTE 0.03 10/3/uL (0.0-0.11); LYMPHOCYTES 21.2 %; LYMPHOCYTES ABSOLUTE 1.98 10/3/uL (0.67-4.30); MEAN CORPUS HGB CONC 33.5 g/dL (32.0-36.0); MEAN CORPUSCULAR HEMOGLOB 29.3 pg (26.0-34.0); MEAN CORPUSCULAR VOLUME 87.6 fL (80-100); MEAN PLATELET VOLUME 9.7 fL (9.2-13.0); MONOCYTES 17.3 %; MONOCYTES ABSOLUTE 1.61 10/3/uL (0.21-1.20); NEUTROPHILS 59.3 %; NEUTROPHILS ABSOLUTE 5.53 10/3/uL (2.02-8.40); PLATELET COUNT 195 10/3/uL (150-400); RBC DISTRIBUTION WIDTH 13.7 % (12.0-16.0); RED CELL COUNT 4.26 10/6/uL (4.7-6.1); WHITE BLOOD CELLS 9.3 10/3/uL (4.5-10.5)
[2017-05-01 04:36] LABS: MANUAL DIFF NO %
[2017-05-01 04:47] LABS: CALCIUM, SERUM 8.7 MG/DL (8.5-10.4); CHLORIDE, SERUM 103 MMOL/L (96-112); CO2 (CARBON DIOXIDE) 29 MMOL/L (24-34); CREATININE 1.18 MG/DL (0.70-1.30); GFR AFRICAN AMERICAN 73 ML/MIN (>=60); GFR NON AFRICAN AMERICAN 63 ML/MIN (>=60); GLUCOSE, SERUM 105 MG/DL (60-99); SODIUM, SERUM 138 MMOL/L (135-148)
[2017-05-01 04:50] LABS: BUN (BLOOD UREA NITROGEN) 22 MG/DL (6-23)
[2017-05-01] MEDS ORDERED: LIPITOR40 PO (10:47)
[2017-05-01] MEDS ORDERED: LOP25 PO (10:48)
[2017-07-27] MEDS ORDERED: LOP50 PO (15:49)
== END 2017-05-01 13:33 | disposition home or self-care (01) | DRG 236 ==
LOC: SDC/OF 08:22 → CVICU 19:13 → SDC/OF 04-27 11:09 → CVICU 04-27 11:11 → 5NO 04-27 18:25
PROVIDERS: Nurse Practitioner Adult Health; Thoracic Surgery (Cardiothoracic Vascular Surgery)
PROC: 06BP4ZZ Excision of Right Saphenous Vein, Percutaneous Endoscopic Approach (ICD-10-PCS; 2017-04-26)
PROC: B246ZZ4 Ultrasonography of Right and Left Heart, Transesophageal (ICD-10-PCS; 2017-04-26)
PROC: 021309W Bypass Coronary Artery, Four or More Arteries from Aorta with Autologous Venous Tissue, Open Approach (ICD-10-PCS; principal; 2017-04-26 13:30)
PROC: 02100Z9 Bypass Coronary Artery, One Artery from Left Internal Mammary, Open Approach (ICD-10-PCS; 2017-04-26 13:30)
DX: I25.110 Atherosclerotic heart disease of native coronary artery with unstable angina pectoris (principal); N17.9 Acute kidney failure, unspecified; Z68.41 Body mass index [BMI] 40.0-44.9, adult; Z99.81 Dependence on supplemental oxygen; J98.11 Atelectasis; I97.89 Other postprocedural complications and disorders of the circulatory system, not elsewhere classified; N18.3 Chronic kidney disease, stage 3 (moderate); I12.9 Hypertensive chronic kidney disease with stage 1 through stage 4 chronic kidney disease, or unspecified chronic kidney disease; E78.5 Hyperlipidemia, unspecified; G47.33 Obstructive sleep apnea (adult) (pediatric); I25.2 Old myocardial infarction; Z95.5 Presence of coronary angioplasty implant and graft; R73.9 Hyperglycemia, unspecified; N40.0 Benign prostatic hyperplasia without lower urinary tract symptoms; G89.29 Other chronic pain; Z79.891 Long term (current) use of opiate analgesic; E66.01 Morbid (severe) obesity due to excess calories; I48.91 Unspecified atrial fibrillation
CPT/HCPCS: 36415; 71010; 71020; 80048; 80053; 81001; 82330; 82803; 82805; 82947; 82962; 83036; 83540; 83550; 83735; 84100; 84132; 84295; 85014; 85018; 85025; 85347; 85384; 85576; 85576-59; 85610; 85730; 86850; 86900; 86901; 86920; 87641; 93005; 93312; 93320; 93325; 94002; 94640; 94660; 94770; A9270-GY; C1713; C1751; C1769; C1894; J0690; J1644; J2250; J2370; J2405; J2440; J2720; J2795; J2930; J3010; J3475; J3480; P9045; P9047